=== PATIENT | female | born 1975 | race African-American/Black ===

== ENCOUNTER 2024-11-08 19:38 | Emergency (ER) | payer MEDICARE, OTHER ==
[~2024-11-08] VITALS: Ht 162.6 cm; Wt 63.4 kg
[2024-11-08 21:17] VITALS: BP 136/73; PULSE 57; RESP 16; TEMP 98.4; O2SAT 96
[2024-11-08] MEDS ORDERED: AMOX875T4 PO (21:50)
[2024-11-08] MEDS ORDERED: CARB6.5S44 OT (21:50)
[2024-11-08] MEDS ORDERED: IBUP-1456 PO (21:50)
--- NOTE | 2024-11-08 21:50 | ED.PDOC ---
Eye-HPI HPI Comments 49-YEAR-OLD FEMALE PRESENTS TO ER WITH COMPLAINTS OF RIGHT EARACHE PAIN X1 WEEK. PATIENT REPORTS SHE HAS BEEN EXPERIENCING RIGHT EARACHE PAIN WITH ASSOCIATED DECREASED HEARING FROM RIGHT EAR X1 WEEK. SHE RATES HER CURRENT PAIN A 7/10 TO RIGHT EAR WITHOUT RADIATION. REPORTS THAT SHE DID USE [id number] "EARDROPS" X1 DAY WITHOUT RELIEF. PATIENT PRESENTS TO ER AMBULATORY ON ARRIVAL, WITH STEADY GAIT, IN NO DISTRESS. DENIES EAR DRAINAGE, RECENT SWIMMING, NAUSEA/VOMITING, DIZZINESS, SKIN CHANGES, FEVER OR ANY FURTHER SYMPTOMS/COMPLAINTS Chief Complaint: Earache Time Seen by MD: 20:26 Primary Care Provider: UNKNOWN Reviewed Notes: Nurses Notes, Medications, Allergies Allergies: Coded Allergies: NO KNOWN ALLERGIES (Unverified , 11/08/24) Home Meds Active Scripts Ibuprofen (Ibuprofen) 800 Mg Tab, 1 TAB PO TID PRN, #30 TAB 0 Refills Prov:ROSA ROJAS 11/08/24 Carbamide Peroxide (Debrox) 6.5 % Bozena, 5 DROP OT BID for 4 Days, #1 BOTTLE 0 Refills Prov:ROSA ROJAS 11/08/24 Amoxicillin & Pot Clavulanate (Amoxicillin/Potassium Cla) 875 Mg Tab, 1 TAB PO BID for 7 Days, #14 TAB 0 Refills Prov:ROSA ROJAS 11/08/24 Information Source: Patient Mode of Arrival: Ambulatory Past Medical History PAST MEDICAL HISTORY: Denies Surgical History: Hysterectomy Family History Family History: Unknown Social History Smoker: Non-Smoker Alcohol: Denies ETOH Use Drugs: Marijuana Lives In: Home Constitutional: denies: chills, diaphoresis, fatigue, fever, malaise, sweats, weakness, others EENTM: reports: others ( STATED IN HPI) Respiratory: denies: cough, hemoptysis, orthopnea, SOB at rest, shortness of breath, SOB with excertion, stridor, wheezing, others Cardiovascular: denies: chest pain, dizzy spells, diaphoresis, Dyspnea on exertion, edema, irregular heart beat, left arm pain, lightheadedness, palpitations, PND, syncope, others Gastrointestinal: denies: abdomen distended, abdominal pain, blood streaked bowels, constipated, diarrhea, dysphagia, difficulty swallowing, hematemesis, melena, nausea, poor appetite, poor fluid intake, rectal bleeding, rectal pain, vomiting, others Genitourinary: denies: abnormal vagina bleeding, burning, dyspareunia, dysuria, flank pain, frequency, hematuria, incontinence, pain, , vagina discharge, urgency, others Neurological: denies: dizziness, fainting, headache, left sided numbness, left sided weakness, numbness, paresthesia, pre-existing deficit, right sided numbness, right sided weakness, seizure, speech problems, tingling, tremors, weakness, others Musculoskeletal: denies: back pain, gout, joint pain, joint swelling, muscle pain, muscle stiffness, neck pain, others Integumetry: denies: bruises, change in color, change in hair/nails, dryness, laceration, lesions, lumps, rash, wounds, others Allergic/Immunocompromised: denies: Difficulty Healing, Frequent Infections, Hives, Itching, others Hematologic/Lymphatic: denies: anemia, blood clots, easy bleeding, easy bruising, swollen glands, others Endocrine: denies: excessive hunger, excessive sweating, excessive thirst, excessive urination, flushing, intolerance to cold, intolerance to heat, unexplained weight gain, unexplained weight loss, others Psychiatric: denies: anxiety, bipolar disorder, depression, hopeless, panic disorder, schizophrenia, sleepless, suicidal, others Physical Exam General Appearance: No Apparent Distress HEENT: PERRL/EOMI, Pharynx Normal, Other (CERUMEN IMPACTION TO RIGHT MIDDLE EAR CANAL NOTED, UNABLE TO VISUALIZE RIGHT TM DUE TO CERUMEN IMPACTION, NO VISIBLE ERYTHEMA/DRAINAGE/SKIN CHANGES APPRECIATED, NO TTP TO RIGHT MASTOID PROCESS NOTED, MILD DECREASED WHISPERED HEARING NOTED ON RIGHT. EAR EXAM ON LEFT- UNREMARKABLE) Neck: Full Range of Motion, Non-Tender, Normal Respiratory: Chest Non-Tender, Lungs Clear, No Accessory Muscle Use, No Respiratory Distress, Normal Breath Sounds Cardiovascular: No Murmur, No Gallop, Regular Rate/Rhythm Breast Exam: Deferred Gastrointestinal: NOT DONE Genitalia: Deferred Pelvic: Deferred Rectal: Deferred Extremities: Normal capillary refill, Normal range of motion Neurologic: Alert, change director II-XII nml as Tested, No Motor Deficits, Normal Affect, Normal Mood, No Sensory Deficits Cerebellar Function: Normal Reflexes: Normal Skin: Dry, Normal Color, Warm Lymphatic: No Adenopathy Was a procedure done? Was a procedure done?: No Sedation Sedation?: No EENT DIFF Eye: N/A Ear: Abrasion, Foreign Body, Otitis Externa, Otitis Media, Perforation X-Ray, Labs, Meds, VS Vital Signs Date Time Temp Pulse Resp B/P (MAP) Pulse Ox O2 Delivery O2 Flow Rate FiO2 11/08/24 21:17 98.4 57 16 136/73 (94) 96 98.4 11/08/24 21:17 57 16 96 Room Air 11/08/24 20:00 98.8 88 18 129/100 (110) 99 IBUPROFEN 800 MG P.O. ORDERED ADVISED TO FOLLOW UP WITH PCP IN 1-2 DAYS PATIENT VERBALIZED UNDERSTANDING AND AGREEABLE WITH CURRENT PLAN OF CARE ADVISED TO RETURN TO ER IMMEDIATELY IF SYMPTOMS WORSEN Time of 1ST Reevaluation: 21:20 Reevaluation 1ST: N/A Patient Education/Counseling: Diagnosis, Treatment, Prognosis, Need For Follow Up Family Education/Counseling: No Family Present Departure 1 Departure Time of Disposition: 21:48 Impression: Primary Impression: Impacted cerumen of right ear Disposition: 01 HOME / SELF CARE / HOMELESS Condition: Stable e-Prescriptions Ibuprofen (Ibuprofen) 800 Mg Tab 1 TAB PO TID PRN, #30 TAB 0 Refills Prov: ROSA ROJAS 11/08/24 Carbamide Peroxide (Debrox) 6.5 % Bozena 5 DROP OT BID for 4 Days, #1 BOTTLE 0 Refills Prov: ROSA ROJAS 11/08/24 Amoxicillin & Pot Clavulanate (Amoxicillin/Potassium Cla) 875 Mg Tab 1 TAB PO BID for 7 Days, #14 TAB 0 Refills Prov: ROSA ROJAS 11/08/24 Discharged With: Self Critical Care Note Critical Care Time?: No Stability Stability form required: No Heart Score Heart Score: Heart Score Response (Comments) Value History N/A 0 EKG N/A 0 Age N/A 0 Risk Factors N/A 0 Troponin N/A 0 Total 0 ROSA ROJAS Nov 08, 2024 21:50
[2024-11-08] MEDS: IBUPROFEN 800 MG TAB PO ONE (21:53)
== END 2024-11-08 22:08 | disposition home or self-care (01) ==
LOC: ER 19:38
DX: H61.21 Impacted cerumen, right ear (principal); Z90.710 Acquired absence of both cervix and uterus

== ENCOUNTER 2024-12-22 23:28 | Emergency (ER) | payer MEDICARE, OTHER ==
[~2024-12-22] VITALS: Ht 160 cm; Wt 62.4 kg
[~2024-12-22 23:28] MED LIST: AMOX875T4 PO; CARB6.5S44 OT; IBUP-1456 PO
[2024-12-23 01:30] VITALS: BP 142/89; PULSE 89; RESP 15; TEMP 98.9; O2SAT 100
[2024-12-23] MEDS: ONDANSETRON ODT 4 MG TAB PO ONE (01:37)
[2024-12-23] MEDS: HYDROcodone-ACET 5/325MG TAB PO ONE (01:37)
[2024-12-23] MEDS ORDERED: ACET500T58 PO (01:41)
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
== END 2024-12-23 02:00 | disposition home or self-care (01) ==
LOC: ER 23:28
DX: S01.511A Laceration without foreign body of lip, initial encounter (principal); Z90.710 Acquired absence of both cervix and uterus; F12.90 Cannabis use, unspecified, uncomplicated; Y08.89XA Assault by other specified means, initial encounter; Y93.89 Activity, other specified; Y92.89 Other specified places as the place of occurrence of the external cause; Y99.8 Other external cause status
CPT/HCPCS: 12011; 99283; Q0162